=== PATIENT | male | born 1990 | race Caucasian/White ===

== ENCOUNTER 2023-08-01 14:45 | Outpatient (AMB) | payer OTHER, SELFPAY ==
--- NOTE | 2023-08-01 15:03 | A.OFFPC_ITS ---
Vital Signs 08/01/23 15:25 Height 5 ft 10 in Weight 242 lb 2 oz BMI 34.7 BP 128/80 Blood Pressure Location Lt brachial Position Sitting Pulse 93 Pulse Source Pulse Oximeter Pulse Oximetry (%) 98 Oxygen Delivery Method Room Air Intake Visit Reasons: New patient-req physical Intake Note: Patient is here as a new patient, He states he would like blood check, history of back pain, took Aleve for it, and concern of rash. Allergies amoxicillin Allergy (Mild, Verified 08/01/23 15:06) Rash Tobacco use date assessed: 08/01/23 Dental Screening Dental Screen Date: 08/01/23 Did you have a dental visit in the last 12 months?: Yes Did you have a dental problem in the last 6 months where you did not have access to dental care?: No Was dental information given to patient?: Patient has dentist HPI New patient-req physical HPI Details New patient Prior PCP:?none since pedi Last office visit/CPE: Acute issue(s): Back pain and had tizanidine originally, uses naproxen occasionally. Currently?asymptomatic. Pt has concerns of a rash - ? psoriasis PMHx: Depression with anxiety - stable, Back pain, Difficulty concentrating SurgHx: None FHx: Mom: HTN, EtOH abuse. Dad: HTN, HLD, CAD w/ Bypass SocHx: Quit cigs as teenager smoked 1 ppw x 7 years. EtOH 1 drink per mo x heavy drinks. No drugs. [facility] Medical History (Updated 08/01/23 @ 16:08 by Brooks Beltran) Depression Anxiety Surgical History (Updated 08/01/23 @ 15:11 by Lorena Haque CMA) No pertinent past surgical history Family History (Updated 08/01/23 @ 15:13 by Lorena Haque CMA) Mother High blood pressure Father High blood pressure High cholesterol Social History (Updated 08/01/23 @ 15:19 by Lorena Haque CMA) Household Members: Spouse Housing: House Are you a primary multi care technician to a significant other at home: No Do you presently have visiting nurse or other home services: No 75 years or older and lives alone: No Alcohol intake: current Comment: on occasion Patient Tobacco Use Status: Never used Tobacco Tobacco use type: Cigarette e-Cigarette/Vaping Use: Never Used Use of substances other than those prescribed or required for medical reasons: No Substance Use Type: Marijuana Substance Use Type Other:: recreational Have you been hit, kicked, punched, or otherwise hurt by someone within the past year? 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 Vision needs: Yes (contact lenses) Questionnaire PHQ-9 Over the last 2 weeks, how often have you been bothered by any of the following problems? 1. Little interest or pleasure in doing things: more than half the days 2. Feeling down, depressed, or hopeless: more than half the days 3. Trouble falling or staying asleep, or sleeping too much: several days 4. Feeling tired or having little energy: nearly every day 5. Poor appetite or overeating: several days 6. Feeling bad about yourself - or that you are a failure or have let yourself or your family down: more than half the days 7. Trouble concentrating on things, such as reading the newspaper or watching television: more than half the days 8. Moving or speaking so slowly that other people could have noticed. Or the opposite - being so fidgety or restless that you have been moving around a lot more than usual: several days 9. Thoughts that you would be better off or of hurting yourself in some way: several days Total score: 15 Depression Screening Interpretation: Positive Depression Screening Follow-up: In treatment Depression Screening Done: Yes 69891 - PHQ-9 Billing: Yes Source: Developed by Drs. Hunter Landry, Linda Javier, Naldo Steel and colleagues, with an educational brad from [employer]. Thrive Questionnaire Date Thrive assessed: 08/01/23 I am a: Patient What is your living situation today?: I have a steady place to live Within the past 12 months, did the food you bought not last and you didn't have the money to get more?: Never true Within the past 12 months, did you worry whether your food would run out before you got money to buy more?: Never true Do you have trouble paying for medicines?: No Do you have trouble getting transportation to medical appointments?: No Do you have trouble paying your heating and electricity bill?: No Do you have trouble taking care of your child, family member or friend?: No Do you have trouble with day-to-day activities such as bathing, preparing meals, shopping, managing finances, etc.?: No Are you currently unemployed and looking for a job?: No Are you interested in more education?: No AUDIT C Alcohol Use Questionnaire (AUDIT-C) 1. How often do you have a drink containing alcohol?: Never 2. How many drinks containing alcohol do you have on a typical day when you are drinking?: 1 or 2 3. How often do you have six or more drinks on one occasion?: Never Total Score: 0 DWAYNE-7 AMB Questionnaire DWAYNE-7 Date DWAYNE - 7 assessed: 08/01/23 Feeling nervous, anxious, or on edge: 2 = More than half the days Not being able to stop or control worryin = Several days Worrying too much about different things: 1 = Several days Trouble relaxin = More than half the days Being so restless that it is hard to sit still: 2 = More than half the days Becoming easily annoyed or irritable: 3 = Nearly every day Feeling afraid as if something awful might happen: 0 = Not at all Total DWAYNE-7 score (0-4 normal; 5-9 mild; 10-14 moderate; 15-21 severe): 11 Source: Developed by Drs. Hunter Landry, Linda Javier, Naldo Steel and colleagues, with an educational brad from [employer]. DWAYNE-7 Assessment Billing DWAYNE-7 Assessment Tool: DWAYNE-7 Assessment 08321 Review of Systems Const Denies chills, Denies fatigue, Denies fever(s), Denies headache(s) and Denies weakness ENT Denies dizziness and Denies headache(s) Card Denies chest pain, Denies lightheadedness, Denies dyspnea and Denies other (Palpitations) Resp Denies cough, Denies dyspnea, Denies wheezing and Denies other ( shortness of breath) Musc Denies numbness and Denies tingling Neuro Denies dizziness, Denies headache(s), Denies numbness, Denies tingling, Denies paresthesias and Denies weakness Psych Denies anxiety and Denies depression Endo Denies fatigue Aller/Immun Denies wheezing Physical exam (Primary Care) Vital Signs: Last Vital Signs Pulse 93 08/01/23 15:25 BP 128/80 08/01/23 15:25 Pulse Ox 98 08/01/23 15:25 Oxygen Delivery Method Room Air 08/01/23 15:25 BMI result Body Mass Index 34.7 Tobacco/Smoking Status: Tobacco use Status Tobacco use date assessed 08/01/23 08/01/23 15:23 Patient Tobacco Use Status Never used Tobacco 08/01/23 15:23 Tobacco use type Cigarette 08/01/23 15:23 e-Cigarette/Vaping Use Never Used 08/01/23 15:23 PHQ-9: PHQ-9 Score PHQ-9: Total score 15 08/01/23 15:26 Depression Screening Interpretation: Positive Depression Screening Follow-up: In treatment Thrive Assessment: Date of Thrive Assessment Date Thrive assessed 08/01/23 08/01/23 15:23 Const General: no acute distress and well developed Nutritional Appearance: well nourished Orientation/consciousness: patient oriented x3 HENMT Head: Yes normocephalic and Yes atraumatic Eyes General: appearance normal, both eyes and all related structures Pupils: Equal, round and reactive pupils present EOM: EOMs intact bilaterally Resp Effort & Inspection: normal respiratory effort Auscultation: clear to auscultation bilaterally Cardio Rate: regular rate Rhythm: regular rhythm Heart sounds: S1 normal heart sound present, S2 normal heart sound present, no gallops, no murmurs and no rubs Skin Other: Patchy plaques on extensor surfaces of his arms Neuro General: patient oriented x3 and gait normal Cranial nerves: Yes Equal, round and reactive pupils present Psych Affect: normal affect Assessment and Plan Assessment & Plan (1) Back pain: Code(s): M54.9 - Dorsalgia, unspecified Plan: Likely?recurrent?strains He?has?had?physical?therapy?in?the?past?and?I?encouraged?him?to?continue?his?phy sical?therapy?exercises?as?well?as?keeping?back?muscles?and?core?muscles?strong. Can?use?Aleve/naproxen?for?mild?pain?or?call?for?an?appointment?if?worsens (2) Depression with anxiety: Code(s): F41.8 - Other specified anxiety disorders Plan: PHQ-9?and?dwayne?7?are?high. He?has?begun?treatment?with?a?psychiatrist?and?is?taking?paroxetine.??Also?has?a tomoxetine?for?difficulty?concentrating Patient?contracts?for?safety?today. Continue?current?medication?regimen?and?follow- up?with?psychiatrist?as?recommended (3) Difficulty concentrating: Code(s): R41.840 - Attention and concentration deficit Plan: Difficulty?concentrating?and?patient?states?that?he?is?being?treate d?with?atomoxetine?for?ADHD. I?let?him?know?that?he?can?forward?me?notes?including?diagnosis?of?ADHD?if?he?wo uld?like?and?this?could?be?helpful?if?he?needs?coverage?of?medications. Follow-up?with?psychiatrist?as?recommended (4) Rash: Code(s): R21 - Rash and other nonspecific skin eruption Plan: Likely?psoriasis Will?give?him?a?steroid?cream?and?refer?him?to?Dermatology He?uses?a?dandruff?shampoo?on?his?scalp?and?he?can?try?this?on?his?arms?as?well? while?awaiting?referral?to?Dermatology. (5) Laboratory exam ordered as part of routine general medical examination: Code(s): Z00.00 - Encounter for general adult medical examination without abnormal findings Plan: Check?labs Orders: Orders Lipid Panel Today Z00.00 - Encounter for general adult medical examination without abnormal findings UA and rflx microscopic Today Z00.00 - Encounter for general adult medical examination without abnormal findings CT NG by PCR Today Z11.3 - Encounter for screening for infections with a predominantly sexual mode of transmission HIV Ab/Ag Today Z11.3 - Encounter for screening for infections with a predominantly sexual mode of transmission Hepatitis B,C Profile Today Z11.3 - Encounter for screening for infections with a predominantly sexual mode of transmission Syphilis Screen Today Z11.3 - Encounter for screening for infections with a pre dominantly sexual mode of transmission Comprehensive [place]. Panel Fast Today Z00.00 - Encounter for general adult medical examination without abnormal findings Complete Blood Count Auto Diff Today Z00.00 - Encounter for general adult medical examination without abnormal findings Microalbumin, Random (w Creat) Today I10 - Essential (primary) hypertension TSH reflex Free T4 Today Z00.00 - Encounter for general adult medical examination without abnormal findings Referrals Dermatology Referral R21 - Rash and other nonspecific skin eruption Medications: New betamethasone dipropionate 0.05% 1 appl topical BID PRN 60 grams 2RF skin irritation 30 days Coding Level of Care Code New Pt Level 3 (32560) Diagnoses Back pain M54.9 Depression with anxiety F41.8 Difficulty concentrating R41.840 Rash R21 Laboratory exam ordered as part of routine general medical examination Z00.00 Additional Codes DWAYNE-7 Assessment Billing - DWAYNE-7 Assessment Tool: DWAYNE-7 Assessment 30037 ([id number])
[2023-08-01 15:25] VITALS: BP 128/80; PULSE 93; O2SAT 98; BMI 34.7
== END 2023-08-01 16:22 | disposition home or self-care (01) ==
PROVIDERS: PCP Family Medicine; Visit Provider Family Medicine
DX: M54.9 Dorsalgia, unspecified (principal); F41.8 Other specified anxiety disorders; R41.840 Attention and concentration deficit; R21 Rash and other nonspecific skin eruption
CPT/HCPCS: 96127; 99203

== ENCOUNTER 2023-08-03 07:36 | Outpatient (REF) | payer OTHER, SELFPAY ==
[2023-08-03 07:59] LABS: MANUAL DIFF FLAG NO
[2023-08-03 08:22] LABS: Basophils Percent Auto 0.5 % (0-2); Eosinophils Absolute Auto 0.1 X10*3/uL (0.0-0.4); Eosinophils Percent Auto 1.3 % (0-4); Hematocrit 42.9 % (42.0-52.0); Hemoglobin 14.9 g/dl (14.0-18.0); Imm Gran Abs Auto 0.04 X10*3/uL (0.00-0.03); Imm Gran Pct Auto 0.5 % (0.0-0.4); Lymphocytes Absolute Auto 2.4 X10*3/uL (1.2-4.9); Mean Corpuscular HGB Conc 34.7 g/dl (31.0-36.0); Mean Corpuscular Hemoglobin 31.4 pg (27.0-33.0); Mean Corpuscular Volume 90.3 fL (80.0-98.0); Mean Platelet Volume 8.5 fL (9.4-12.4); Monocytes Absolute Auto 0.6 X10*3/uL (0.1-1.2); Monocytes Percent Auto 7.7 % (2-11); Platelet Count 277 X10*3/uL (160-400); Red Blood Count 4.75 X10*6/uL (4.60-5.80); White Blood Count 8.3 X10*3/uL (4.8-10.8)
[2023-08-03 09:04] LABS: Appearance Urine Cloudy; Color Urine Yellow; Glucose Urine UA Negative (Negative); Leukocyte Esterase Urine Negative (Negative); Nitrite Urine Negative (Negative); PH 5.5 (5.0-9.0); Specific Gravity - Urine >= 1.030 (1.005-1.025); UMIC TRIGGER UA YES; Urine Blood Negative (Negative); Urine Ketones Trace mg/dL (Negative); Urine Protein 30 (1+) mg/dL (Neg-Trace)
[2023-08-03 09:09] LABS: Bacteria Urine None Seen (None Seen); Hyaline Casts Urine 0-2 /LPF (0-2); RBC Urine 0-2 /HPF (0-2); Squamous Epithelial Cell Urine 0-2 /HPF (0-2)
[2023-08-03 09:19] LABS: Alanine Aminotransferase 50 U/L (0-40); Albumin Level 4.3 g/dL (3.5-5.0); Alkaline Phosphatase 66 U/L (39-117); Anion Gap 14 (12-20); Aspartate Amino Transferase 20 U/L (5-37); Bilirubin Total 0.3 mg/dL (0.0-1.0); Blood Urea Nitrogen 17 mg/dL (9-16); Calcium 9.3 mg/dL (8.4-10.2); Carbon Dioxide 25 mmol/L (22-29); Chloride 106 mmol/L (96-108); Cholesterol 134 mg/dL (<200); Estimated Glomerular Filt Rate > 60; Glucose Fasting 91 mg/dL (60-99); HDL Cholesterol 28 mg/dL (>40); LDL Cholesterol Calculated 38 mg/dL (<100); Potassium 4.1 mmol/L (3.3-5.1); Sodium 141 mmol/L (135-145); Total Protein 7.4 g/dL (6.5-8.0); Triglycerides 340 mg/dL (<150)
[2023-08-03 09:36] LABS: TSH reflex Free T4 0.87 uIU/mL (0.32-4.0)
[2023-08-03 10:08] LABS: Creatinine Urine 187.65 mg/dL; Microalbum/Creatinine Ratio Ur 14.3 ug/mg cr (<30)
[2023-08-04 04:35] LABS: Syphilis Screen Nonreactive (Nonreactive)
[2023-08-04 05:24] LABS: HBS Num1 125.96 mIU/mL (0-7.99); HBc Num1 0.08 S/CO (0.00-0.79); HIV AB/AG Nonreactive (Nonreactive); HIV Num 1 0.06 S/CO (0.00-0.99); Hepatitis B Core Antibody Nonreactive (Nonreactive); Hepatitis B Surface Antigen Negative (Negative); ~HepC Num1 0.07 S/CO (0.00-0.79); ~Hepatitis B Surface Antibody REACTIVE (Nonreactive); ~Hepatitis C Antibody Nonreactive (Nonreactive)
== END 2023-08-03 07:37 | disposition home or self-care (01) ==
LOC: HO.LAB 07:36
PROVIDERS: PCP Family Medicine; Visit Provider Family Medicine
DX: Z00.00 Encounter for general adult medical examination without abnormal findings (principal); Z11.4 Encounter for screening for human immunodeficiency virus [HIV]; I10 Essential (primary) hypertension; Z20.2 Contact with and (suspected) exposure to infections with a predominantly sexual mode of transmission
CPT/HCPCS: 36415; 80053; 80061; 81001; 81003; 82043; 82570; 84443; 85025; 86704; 86706; 86780; 86803; 87340; 87389

== ENCOUNTER 2023-10-25 13:30 | Outpatient (AMB) | payer OTHER, SELFPAY ==
--- NOTE | 2023-10-25 13:36 | MHC.PC.OV ---
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 Allergies amoxicillin Allergy (Mild, Verified 10/25/23 13:37) Rash Medication List - Last Reconciled 10/25/23 by Beto Gonzales MD atomoxetine 80 mg PO DAILY betamethasone dipropionate 0.05% 1 appl topical BID PRN 30 days naproxen sodium (Aleve) 220 mg PO BID PRN paroxetine HCl 10 mg PO DAILY Tobacco use date assessed: 10/25/23 Dental Screening Dental Screen Date: 10/25/23 Did you have a dental visit in the last 12 months?: Yes Did you have a dental problem in the last 6 months where you did not have access to dental care?: No Was dental information given to patient?: Patient has dentist HPI CPE with f/u labs and health maint HPI Details 33 y/o male presents for a CPE with f/u labs and health maintenance. Labs were drawn 08/03/23. Reviewed labs with pt. Elevated ALT of 50. Triglycerides 340. TC 134. LDL 38. HDL low at 28. Pt reports GERD every other day. [facility] Medical History (Updated 10/25/23 @ 14:09 by Brooks Beltran) Depression Anxiety Surgical History (Updated 08/01/23 @ 15:11 by Lorena Haque CMA) No pertinent past surgical history Family History (Updated 08/01/23 @ 15:13 by Lorena Haque CMA) Mother High blood pressure Father High blood pressure High cholesterol Social History (Updated 08/01/23 @ 15:19 by Lorena Haque CMA) Household Members: Spouse Housing: House Are you a primary nursing care partner to a significant other at home: No Do you presently have visiting nurse or other home services: No 75 years or older and lives alone: No Alcohol intake: current Comment: on occasion Patient Tobacco Use Status: Former Tobacco user Tobacco use type: Cigarette Years Smoked: 2-3 years as a teenager e-Cigarette/Vaping Use: Never Used Substance Use Type: Marijuana service: No Current occupational status: employed 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 Current occupational exposures/hazards: No Cognitive needs: No Hearing needs: No Vision needs: Yes (contact lenses) Questionnaire Thrive Questionnaire Date Thrive assessed: 08/01/23 AUDIT C Alcohol Use Questionnaire (AUDIT-C) 1. How often do you have a drink containing alcohol?: Monthly or less 2. How many drinks containing alcohol do you have on a typical day when you are drinking?: 3 or 4 3. How often do you have six or more drinks on one occasion?: Never Total Score: 2 DWAYNE-7 AMB Questionnaire DWAYNE-7 Date DWAYNE - 7 assessed: 08/01/23 Source: Developed by Drs. Hunter Landry, Linda Javier, Naldo Steel and colleagues, with an educational brad from [employer]. Review of Systems Const Denies chills, Denies fatigue, Denies fever(s), Denies headache(s) and Denies weakness Eyes Denies change in vision ENT Denies dizziness, Denies headache(s), Denies hearing loss, Denies nasal congestion, Denies sinus pain, Denies sinus pressure and Denies sore throat Card Denies chest pain, Denies lightheadedness, Denies dyspnea and Denies other (palpitations) Resp Denies cough, Denies dyspnea and Denies wheezing GI Denies abdominal pain, Denies melena, Denies hematochezia, Denies change in bowel habits, Denies dyspepsia and Denies nausea Denies hematuria and Denies dysuria Musc Denies abnormal gait, Denies myalgias, Denies arthralgias, Denies numbness and Denies tingling Skin/Breast Denies rash, Denies unusual bruising and Denies wounds Neuro Denies abnormal gait, Denies dizziness, Denies headache(s), Denies memory loss, Denies numbness, Denies Sensory deficit (Neuro), Denies tingling and Denies weakness Psych Denies anxiety, Denies depression and Denies memory loss Endo Denies cold intolerance, Denies fatigue, Denies heat intolerance, Denies polydipsia and Denies polyuria Albaro/Lymph Denies easy bleeding and Denies easy bruising Aller/Immun Denies wheezing Physical exam (Primary Care) Vital Signs: Last Vital Signs Temp 98.4 F 10/25/23 13:40 Pulse 93 10/25/23 13:40 Resp 14 10/25/23 13:40 BP 124/86 10/25/23 13:40 Pulse Ox 97 10/25/23 13:40 Oxygen Delivery Method Room Air 10/25/23 13:40 BMI result Body Mass Index 35.9 Tobacco/Smoking Status: Tobacco use Status Tobacco use date assessed 10/25/23 10/25/23 13:43 Patient Tobacco Use Status Former Tobacco user 10/25/23 13:43 Tobacco use type Cigarette 10/25/23 13:43 e-Cigarette/Vaping Use Never Used 10/25/23 13:43 Thrive Assessment: Date of Thrive Assessment Date Thrive assessed 08/01/23 10/25/23 13:43 Const General: no acute distress, well developed, alert and awake Nutritional Appearance: well nourished Orientation/consciousness: patient oriented x3 HENMT Head: Yes normocephalic and Yes atraumatic Ears: hearing grossly normal bilaterally and TM's normal bilaterally General nose exam: Normal external nose present and Normal nares present Mouth: Normal oral and palatal mucosa present and moist mucous membranes Teeth and gingiva: dentition normal Throat: Yes posterior oropharynx normal Eyes General: appearance normal, both eyes and all related structures Pupils: Equal, round and reactive pupils present and Pupil accommodation reflex normal EOM: EOMs intact bilaterally Neck Neck: Yes normal visual inspection, Yes no lymphadenopathy and Yes trachea midline Thyroid: Thyroid normal Carotids: no bruits Lymphatic: no lymphadenopathy noted Chest Chest palpation & inspection: normal inspection of the chest Resp Effort & Inspection: normal respiratory effort Auscultation: clear to auscultation bilaterally Cardio Rate: regular rate Rhythm: regular rhythm Heart sounds: S1 normal heart sound present, S2 normal heart sound present, no gallops, no murmurs and no rubs Bruits: no abdominal aortic bruits and no carotid bruits GI Palpation (GI): No Abdominal aortic bruit present, Soft to palpation, nontender, No hepatosplenomegaly present and No Rebound tenderness present Auscultation: normal bowel sounds General: Yes no CVA tenderness Back/Spine/Pelvis Back: no CVA tenderness Cervical Spine: cervical ROM normal and No Cervical spine tenderness Thoracic/Lumbar Spine: thoraco-lumbar ROM normal, No pain with thoraco-lumbar ROM, No thoracic spinal tenderness and No lumbar spinal tenderness Skin Lesions: no lesions Rashes: no rashes Trauma: no lacerations or abrasions Wounds: no wounds Nails: normal Neuro General: patient oriented x3 Cranial nerves: Yes Equal, round and reactive pupils present Cognition (Neuro): normal cognition Gait exam (Neuro): Normal gait present Motor exam (neuro): 5/5 motor strength present throughout Sensory Exam: No Sensory deficit (Neuro) Deep tendon reflexes (DTR's): Right patellar reflex intensity grade: 2+ and Left patellar reflex intensity grade: 2+ Extrem General: Yes normal to inspection and No edema Psych Appearance: grossly normal Affect: normal affect Attitude: cooperative Thought process: Normal thought process present Assessment and Plan Assessment & Plan (1) Adult general medical exam: Code(s): Z00.00 - Encounter for general adult medical examination without abnormal findings Plan: 33-year-old?male?presents?for?complete?physical?exam Encouraged?healthy?diet?with?active?lifestyle?and?plenty?of?exercise (2) Elevated liver enzymes: Code(s): R74.8 - Abnormal levels of other serum enzymes Plan: Most?likely?cause?is?fatty?liver?disorder Encouraged?weight?loss Will?repeat?liver?enzymes?in?about?3?months?and?if?the?same?or?higher?will?check?an?ultrasound (3) GERD (gastroesophageal reflux disease): Code(s): K21.9 - Gastro-esophageal reflux disease without esophagitis Plan: Significant?GERD?with?symptoms?up?to?every?other?day He?is?already?using?Prilosec?and?Tums Will?increase?dose?from?20?mg?to?40?mg?daily Referred?to?GI (4) Hypertriglyceridemia: Code(s): E78.1 - Pure hyperglyceridemia Plan: Triglycerides?are?significantly?elevated Start?fenofibrate Will?recheck?lipids?prior?to?next?visit?in?about?3?months. Also?suspect?LDL?may?be?falsely?low?due?to?high?triglycerides?so?will?follow-up?on?this?as?well (5) Low HDL (under 40): Code(s): E78.6 - Lipoprotein deficiency Plan: Encouraged?exercise Orders: Referrals Gastroenterology Referral K21.9 - Gastro-esophageal reflux disease without esophagitis Medications: New fenofibrate 160 mg PO DAILY 90 days 90 tabs 3RF omeprazole 40 mg PO DAILY 90 days 90 caps 2RF K21.9 - Gastro-esophageal reflux disease without esophagitis Coding Level of Care Code Est Pt Level 3 (11157) Est Pt Prev Care 18-39y(09146) Diagnoses Adult general medical exam Z00.00 Elevated liver enzymes R74.8 GERD (gastroesophageal reflux disease) K21.9 Hypertriglyceridemia E78.1 Low HDL (under 40) E78.6
[2023-10-25 13:40] VITALS: BP 124/86; PULSE 93; RESP 14; TEMP 36.9; O2SAT 97; BMI 35.9
== END 2023-10-25 14:13 | disposition home or self-care (01) ==
PROVIDERS: PCP Family Medicine; Visit Provider Family Medicine
DX: Z00.00 Encounter for general adult medical examination without abnormal findings (principal); R74.8 Abnormal levels of other serum enzymes; K21.9 Gastro-esophageal reflux disease without esophagitis; E78.1 Pure hyperglyceridemia; E78.6 Lipoprotein deficiency
CPT/HCPCS: 99213; 99395

== ENCOUNTER 2024-01-28 15:38 | Outpatient (AMB) | payer OTHER, SELFPAY ==
[2024-01-28 16:07] VITALS: BP 116/70; PULSE 97; O2SAT 99; BMI 35.6
--- NOTE | 2024-01-28 16:07 | A.OFFPC_ITS ---
Vital Signs 01/28/24 16:07 Height 5 ft 7.72 in Weight 232 lb BMI 35.6 BP 116/70 Blood Pressure Location Lt brachial Position Sitting Pulse 97 Pulse Source Pulse Oximeter Pulse Oximetry (%) 99 Oxygen Delivery Method Room Air Intake Visit Reasons: f/u hypercholesterolemia Allergies amoxicillin Allergy (Mild, Verified 10/25/23 13:37) Rash Tobacco use date assessed: 10/25/23 Dental Screening Dental Screen Date: 10/25/23 HPI f/u hypercholesterolemia HPI Details 34 y/o male presents to f/u hypercholest erolemia. Pt notes he has been tolerating fenofibrate well. He notes omeprazole has worked well for his reflux. [facility] Medical History (Updated 10/25/23 @ 14:09 by Brooks Beltran) Depression Anxiety Surgical History (Updated 08/01/23 @ 15:11 by Lorena Haque CMA) No pertinent past surgical history Family History (Updated 08/01/23 @ 15:13 by Lorena Haque CMA) Mother High blood pressure Father High blood pressure High cholesterol Social History (Updated 08/01/23 @ 15:19 by Lorena Haque CMA) Household Members: Spouse Housing: House Are you a primary home care rn to a significant other at home: No Do you presently have visiting nurse or other home services: No 75 years or older and lives alone: No Alcohol intake: current Comment: on occasion Patient Tobacco Use Status: Former Tobacco user Tobacco use type: Cigarette Years Smoked: 2-3 years as a teenager e-Cigarette/Vaping Use: Never Used Substance Use Type: Marijuana service: No Current occupational status: employed 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 Current occupational exposures/hazards: No Cognitive needs: No Hearing needs: No Vision needs: Yes (contact lenses) Questionnaire Thrive Questionnaire Date Thrive assessed: 08/01/23 DWAYNE-7 AMB Questionnaire DWAYNE-7 Date DWAYNE - 7 assessed: 08/01/23 Source: Developed by Drs. Hunter Landry, Linda Javier, Naldo Steel and colleagues, with an educational brad from [employer]. Review of Systems Const Denies chills, Denies fatigue, Denies fever(s), Denies headache(s) and Denies weakness ENT Denies dizziness and Denies headache(s) Card Denies dyspnea Resp Denies cough, Denies dyspnea, Denies wheezing and Denies other (shortness of breath) Musc Denies numbness and Denies tingling Neuro Denies dizziness, Denies headache(s), Denies numbness, Denies tingling and Denies weakness Psych Denies anxiety and Denies depression Endo Denies fatigue Aller/Immun Denies wheezing Physical exam (Primary Care) Vital Signs: Last Vital Signs Pulse 97 01/28/24 16:07 BP 116/70 01/28/24 16:07 Pulse Ox 99 01/28/24 16:07 Oxygen Delivery Method Room Air 01/28/24 16:07 BMI result Body Mass Index 35.6 Tobacco/Smoking Status: Tobacco use Status Tobacco use date assessed 10/25/23 01/28/24 16:11 Patient Tobacco Use Status Former Tobacco user 01/28/24 16:11 Tobacco use type Cigarette 01/28/24 16:11 e-Cigarette/Vaping Use Never Used 01/28/24 16:11 Thrive Assessment: Date of Thrive Assessment Date Thrive assessed 08/01/23 01/28/24 16:11 Const General: well developed; No acute distress Nutritional Appearance: well nourished Orientation/consciousness: patient oriented x3 HENMT Head: Yes normocephalic and Yes atraumatic Eyes General: appearance normal, both eyes and all related structures Pupils: Equal, round and reactive pupils present EOM: EOMs intact bilaterally Resp Effort & Inspection: normal respiratory effort Auscultation: clear to auscultation bilaterally Cardio Rate: regular rate Rhythm: regular rhythm Heart sounds: S1 normal heart sound present, S2 normal heart sound present, no gallops, no murmurs and no rubs Neuro General: patient oriented x3 and gait normal Cranial nerves: Yes Equal, round and reactive pupils present Psych Affect: normal affect Assessment and Plan Assessment & Plan (1) Hypertriglyceridemia: Code(s): E78.1 - Pure hyperglyceridemia Plan: Triglycerides?were?significantly?elevated?at?prior?Check?and?we?started?fenofibr ate?which?patient?is?tolerating?well. He?will?get?his?labs?redrawn?prior?to?next?telemedicine?encounter?in?about?a?sat. (2) GERD (gastroesophageal reflux disease): Code(s): K21.9 - Gastro-esophageal reflux disease without esophagitis Plan: Patient?notes?that?GERD?has?resolved?with?omeprazole. Had?referred?h im?to?Gastroenterology?but?he?has?not?heard?back?and?I?gave?him?their?phone?numb er. Can?follow-up?with?GI Orders: Orders Comprehensive [place]. Panel Fast Today R74.8 - Abnormal levels of other serum enzymes, Z00.00 - Encounter for general adult medical examination without abnormal findings Lipid Panel Today E78.1 - Pure hyperglyceridemia, Z00.00 - Encounter for general adult medical examination without abnormal findings LDL Cholesterol Direct Today E78.1 - Pure hyperglyceridemia Coding Level of Care Code Est Pt Level 3 (82138) Diagnoses Hypertriglyceridemia E78.1 GERD (gastroesophageal reflux disease) K21.9
== END 2024-01-28 16:22 | disposition home or self-care (01) ==
PROVIDERS: PCP Family Medicine; Visit Provider Family Medicine
DX: E78.1 Pure hyperglyceridemia (principal); K21.9 Gastro-esophageal reflux disease without esophagitis
CPT/HCPCS: 99213